=== PATIENT | female | born 1940 | race Caucasian/White ===

== ENCOUNTER 2019-04-25 22:12 | Inpatient (IN) | payer MEDICARE ==
[~2019-04-25] VITALS: Ht 176.5 cm; Wt 85.5 kg
[2019-04-25] MEDS ORDERED: PANT40TA3 PO (23:07)
[2019-04-25] MEDS ORDERED: OXYC-302 PO (23:07)
[2019-04-25] MEDS ORDERED: CALC-112 PO (23:08)
[2019-04-25] MEDS ORDERED: LEVO50TA PO (23:09)
[2019-04-25] MEDS ORDERED: LOSA25TA12 PO (23:10)
[2019-04-25] MEDS ORDERED: SIMV40TA20 PO (23:11)
[2019-04-25] MEDS ORDERED: metoprolol er PO (23:11)
[2019-04-25 23:14] VITALS: BP 128/72
[2019-04-26] MEDS ORDERED: PROMETHAZINE 25 MG/ML, 1ML IM PRN (04:00)
[2019-04-26] MEDS ORDERED: ONDANSETRON ODT 4 MG PO PRN (04:00)
[2019-04-26] MEDS ORDERED: hydrALAzine 20 MG/ML, 1ML IVPush PRN (04:00)
[2019-04-26] MEDS ORDERED: BISACODYL 10 MG SUPP PR PRN (04:00)
[2019-04-26] MEDS ORDERED: ONDANSETRON 2MG/ML, 2ML IVPush PRN (04:00)
[2019-04-26] MEDS ORDERED: POLYETHYLENE GLYCOL 17 GM PACKET PO PRN (04:00)
[2019-04-26] MEDS ORDERED: ACETAMINOPHEN 325 MG TABLET PO PRN (04:00)
[2019-04-26 04:19] VITALS: BP 135/81
[2019-04-26 04:22] LABS: BASOPHILS # (AUTO) 0.12 x10^3/uL (0-0.1); BASOPHILS % (AUTO) 2 % (0-1); EOSINOPHILS # (AUTO) 0.07 x10^3/uL (0-0.4); EOSINOPHILS % (AUTO) 1 % (1-7); LYMPHOCYTES # (AUTO) 0.96 x10^3/uL (1-3.4); LYMPHOCYTES % (AUTO) 13 % (22-44); MD NO; MEAN CORPUSCULAR HEMOGLOBIN 29.7 pg (27.0-34.8); MEAN CORPUSCULAR HGB CONC 33.8 g/dL (32.4-35.8); MEAN PLATELET VOLUME 7.2 fL (7.4-10.4); MONOCYTES # (AUTO) 0.68 x10^3/uL (0.2-0.8); MONOCYTES % (AUTO) 9 % (2-9); NEUTROPHILS % (AUTO) 75 % (42-75); PLATELET COUNT 380 x10^3/uL (130-400); RED BLOOD COUNT 3.87 x10^6/uL (3.82-5.3); RED CELL DISTRIBUTION WIDTH 13.6 % (9.6-15.2)
[2019-04-26 04:33] LABS: ALANINE AMINOTRANSFERASE 11 U/L (12-78); ALBUMIN 2.3 g/dL (3.4-5.0); ANION GAP 6 mmol/L (5-15); CALCIUM 11.1 mg/dL (8.5-10.1); CHLORIDE 110 mmol/L (98-107)
[2019-04-26 04:42] LABS: ALKALINE PHOSPHATASE 92 U/L (45-117); BILIRUBIN,TOTAL 0.3 mg/dL (0.2-1.0); CHOL/HDL RATIO 4.1; CHOLESTEROL, TOTAL 126 mg/dL (140-239); CREATININE 1.25 mg/dL (0.55-1.02); HDL CHOL % 25 % (28-40); HDL CHOLESTEROL (DIRECT) 31 mg/dL (40-60); LDL CHOLESTEROL,CALCULATED 51 mg/dL (54-169); LDL/HDL RATIO 1.6 (0.5-3.0); TOTAL PROTEIN 5.2 g/dL (6.4-8.2); TRIGLYCERIDES 222 mg/dL (50-200); VLDL CHOLESTEROL 44 mg/dL (0-25)
[2019-04-26] MEDS: SODIUM CHLORIDE 0.9% 1,000 ML IV SCH ×2 (04:51→12:37)
[2019-04-26] MEDS: LEVOTHYROXINE 50 MCG TABLET PO SCH (06:00)
[2019-04-26 07:12] VITALS: BP_SYST 94; BP_SYST 95; BP_DIAS 59; BP_DIAS 60
[2019-04-26] MEDS: LOSARTAN 25MG TABLET PO SCH (07:31)
[2019-04-26] MEDS: PANTOPROZOLE 40MG TABLET PO SCH ×2 (09:00→09:53)
[2019-04-26] MEDS ORDERED: CALCIUM/VITAMIN D3 250-125 TABLET PO SCH (09:00)
[2019-04-26] MEDS: SENNA/DOCUSATE TABLET PO SCH ×2 (09:00→09:53)
[2019-04-26 09:46] VITALS: BP 108/63
[2019-04-26] MEDS: METOPROLOL SUCCINATE 50 MG TAB.ER.24H PO SCH (09:53)
[2019-04-26 10:41] LABS: CULTURE INDICATED? YES; MICROSCOPIC INDICATED
[2019-04-26] MEDS ORDERED: LIDOCAINE 1%, 10ML ONE (10:52)
[2019-04-26] MEDS ORDERED: MIDAZOLAM 1 MG/ML, 5ML ONE (10:55)
[2019-04-26] MEDS ORDERED: FLUMAZENIL 0.1 MG/1 ML, 5ML ONE (10:55)
[2019-04-26] MEDS ORDERED: FENTANYL PF 100 MCG/2ML ONE (10:55)
[2019-04-26] MEDS ORDERED: NALOXONE 1 MG/ML, 2ML ONE (10:55)
[2019-04-26] MEDS: OXYcodone IR 5MG TABLET PO PRN (12:37)
[2019-04-26 13:56] VITALS: BP_SYST 84; BP_SYST 86; BP_SYST 91; BP_DIAS 53; BP_DIAS 57; BP_DIAS 58
[2019-04-26 19:21] VITALS: BP 116/60
[2019-04-26] MEDS: SIMVASTATIN 40 MG TABLET PO SCH (19:28)
[2019-04-27 03:22] VITALS: BP 98/64
[2019-04-27] MEDS: LEVOTHYROXINE 50 MCG TABLET PO SCH (05:18)
[2019-04-27 05:53] LABS: BASOPHILS # (AUTO) 0.05 x10^3/uL (0-0.1); BASOPHILS % (AUTO) 1 % (0-1); EOSINOPHILS # (AUTO) 0.16 x10^3/uL (0-0.4); EOSINOPHILS % (AUTO) 2 % (1-7); LYMPHOCYTES # (AUTO) 1.16 x10^3/uL (1-3.4); LYMPHOCYTES % (AUTO) 15 % (22-44); MD NO; MEAN CORPUSCULAR HEMOGLOBIN 29.8 pg (27.0-34.8); MEAN CORPUSCULAR HGB CONC 33.4 g/dL (32.4-35.8); MEAN CORPUSCULAR VOLUME 89.4 fL (80-100); MEAN PLATELET VOLUME 7.4 fL (7.4-10.4); MONOCYTES # (AUTO) 0.74 x10^3/uL (0.2-0.8); MONOCYTES % (AUTO) 9 % (2-9); NEUTROPHILS # (AUTO) 5.75 x10^3/uL (1.8-6.8); NEUTROPHILS % (AUTO) 73 % (42-75); PLATELET COUNT 380 x10^3/uL (130-400); RED BLOOD COUNT 4.14 x10^6/uL (3.82-5.3); RED CELL DISTRIBUTION WIDTH 13.7 % (9.6-15.2)
[2019-04-27 06:10] LABS: ALBUMIN 2.3 g/dL (3.4-5.0); ANION GAP 7 mmol/L (5-15); CALCIUM 11.2 mg/dL (8.5-10.1); CHLORIDE 111 mmol/L (98-107)
[2019-04-27 06:19] LABS: ALANINE AMINOTRANSFERASE 7 U/L (12-78); ALKALINE PHOSPHATASE 111 U/L (45-117); BILIRUBIN,TOTAL 0.3 mg/dL (0.2-1.0); CREATININE 1.32 mg/dL (0.55-1.02); TOTAL PROTEIN 5.6 g/dL (6.4-8.2)
[2019-04-27] MEDS ORDERED: PAMIDRONATE 60 MG in SODIUM CHLORIDE 0.9% 500 ML IV ONE (07:30)
[2019-04-27] MEDS ORDERED: PAMIDRONATE 3 MG/ML, 10ML IV ONE (07:30)
[2019-04-27 08:19] VITALS: BP 106/68
[2019-04-27] MEDS ORDERED: CEFTRIAXONE PMX 1GM/50ML 50 ML IV SCH (10:00)
[2019-04-27] MEDS: LOSARTAN 25MG TABLET PO SCH (10:39)
[2019-04-27] MEDS: PANTOPROZOLE 40MG TABLET PO SCH (10:40)
[2019-04-27] MEDS: SENNA/DOCUSATE TABLET PO SCH (10:40)
[2019-04-27] MEDS: METOPROLOL SUCCINATE 50 MG TAB.ER.24H PO SCH (10:40)
[2019-04-27] MEDS: SODIUM CHLORIDE 0.9% 1,000 ML IV SCH ×2 (10:41→21:16)
[2019-04-27] MEDS: OXYcodone IR 5MG TABLET PO PRN (11:22)
[2019-04-27 13:39] VITALS: BP 113/68
[2019-04-27 19:04] VITALS: BP 115/62
[2019-04-27] MEDS: SIMVASTATIN 40 MG TABLET PO SCH (21:15)
[2019-04-28 02:43] VITALS: BP 141/76
[2019-04-28] MEDS: SODIUM CHLORIDE 0.9% 1,000 ML IV SCH ×3 (05:54→22:47)
[2019-04-28] MEDS: LEVOTHYROXINE 50 MCG TABLET PO SCH (05:54)
[2019-04-28 07:26] VITALS: BP 144/81
[2019-04-28] MEDS: SENNA/DOCUSATE TABLET PO SCH (07:39)
[2019-04-28] MEDS: METOPROLOL SUCCINATE 50 MG TAB.ER.24H PO SCH (09:13)
[2019-04-28] MEDS: PANTOPROZOLE 40MG TABLET PO SCH (09:15)
[2019-04-28] MEDS: LOSARTAN 25MG TABLET PO SCH (09:15)
[2019-04-28] MEDS ORDERED: ALBUTEROL SULFATE 2.5 MG/3 ML NPPB PRN (10:00)
[2019-04-28] MEDS ORDERED: FLUTICASONE FUROATE 200MCG/INH INH SCH (10:00)
[2019-04-28] MEDS: AMPICILLIN 2 GM in SODIUM CHLORIDE 0.9% 100 ML IV SCH ×3 (11:33→20:18)
[2019-04-28 13:32] VITALS: BP 145/75
[2019-04-28 18:58] VITALS: BP 132/81
[2019-04-28] MEDS: SIMVASTATIN 40 MG TABLET PO SCH (20:18)
[2019-04-29] MEDS: AMPICILLIN 2 GM in SODIUM CHLORIDE 0.9% 100 ML IV SCH ×4 (00:20→12:00)
[2019-04-29 01:11] VITALS: BP 116/59
[2019-04-29 04:46] LABS: BASOPHILS # (AUTO) 0.03 x10^3/uL (0-0.1); BASOPHILS % (AUTO) 0 % (0-1); EOSINOPHILS # (AUTO) 0.12 x10^3/uL (0-0.4); EOSINOPHILS % (AUTO) 2 % (1-7); LYMPHOCYTES # (AUTO) 0.91 x10^3/uL (1-3.4); LYMPHOCYTES % (AUTO) 13 % (22-44); MD NO; MEAN CORPUSCULAR HEMOGLOBIN 29.1 pg (27.0-34.8); MEAN CORPUSCULAR VOLUME 88.2 fL (80-100); MEAN PLATELET VOLUME 6.5 fL (7.4-10.4); MONOCYTES # (AUTO) 0.56 x10^3/uL (0.2-0.8); MONOCYTES % (AUTO) 8 % (2-9); NEUTROPHILS # (AUTO) 5.29 x10^3/uL (1.8-6.8); NEUTROPHILS % (AUTO) 77 % (42-75); PLATELET COUNT 364 x10^3/uL (130-400); RED BLOOD COUNT 4.06 x10^6/uL (3.82-5.3); RED CELL DISTRIBUTION WIDTH 13.4 % (9.6-15.2)
[2019-04-29 04:55] LABS: ALANINE AMINOTRANSFERASE 9 U/L (12-78); ALBUMIN 2.1 g/dL (3.4-5.0); ANION GAP 6 mmol/L (5-15); CALCIUM 9.1 mg/dL (8.5-10.1); CHLORIDE 116 mmol/L (98-107); CREATININE 0.89 mg/dL (0.55-1.02)
[2019-04-29 04:57] LABS: ALKALINE PHOSPHATASE 100 U/L (45-117); BILIRUBIN,TOTAL 0.5 mg/dL (0.2-1.0); TOTAL PROTEIN 5.1 g/dL (6.4-8.2)
[2019-04-29] MEDS: LEVOTHYROXINE 50 MCG TABLET PO SCH (05:54)
[2019-04-29] MEDS ORDERED: POTASSIUM CHLORIDE 20 MEQ PACKET PO ONE ×3 (07:00→12:00)
[2019-04-29 07:59] VITALS: BP 121/62
[2019-04-29] MEDS ORDERED: FLUTICASONE FUROATE 100MCG/INH INH SCH (08:00)
[2019-04-29] MEDS: SODIUM CHLORIDE 0.9% 1,000 ML IV SCH (08:00)
[2019-04-29] MEDS ORDERED: POTASSIUM CHLORIDE 10% 40 MEQ/30 ML UDC PO ONE (08:30)
[2019-04-29] MEDS ORDERED: POTASSIUM CHLORIDE 10% 20 MEQ/15 ML UDC PO ONE (08:30)
[2019-04-29] MEDS: METOPROLOL SUCCINATE 50 MG TAB.ER.24H PO SCH (09:02)
[2019-04-29] MEDS: LOSARTAN 25MG TABLET PO SCH (09:02)
[2019-04-29] MEDS: PANTOPROZOLE 40MG TABLET PO SCH (09:02)
[2019-04-29] MEDS: SENNA/DOCUSATE TABLET PO SCH (09:02)
[2019-04-29] MEDS ORDERED: FLUT100B INH (13:28)
== END 2019-04-29 13:30 | disposition home or self-care (01) | DRG 180 ==
LOC: 4NW 22:55 → DCLOUNGE 04-29 13:18
PROVIDERS: ADMIT Internal Medicine; ATTEND Hospitalist
PROC: 0BBF3ZX Excision of Right Lower Lung Lobe, Percutaneous Approach, Diagnostic (ICD-10-PCS; principal; 2019-04-26)
DX: C78.00 Secondary malignant neoplasm of unspecified lung (principal); J96.01 Acute respiratory failure with hypoxia; N12 Tubulo-interstitial nephritis, not specified as acute or chronic; E03.9 Hypothyroidism, unspecified; E78.5 Hyperlipidemia, unspecified; E83.52 Hypercalcemia; E86.0 Dehydration; I10 Essential (primary) hypertension; K21.9 Gastro-esophageal reflux disease without esophagitis; Z88.5 Allergy status to narcotic agent; Z88.8 Allergy status to other drugs, medicaments and biological substances; N28.89 Other specified disorders of kidney and ureter; M47.816 Spondylosis without myelopathy or radiculopathy, lumbar region; Z79.899 Other long term (current) drug therapy; D25.9 Leiomyoma of uterus, unspecified; C80.1 Malignant (primary) neoplasm, unspecified
CPT/HCPCS: 32405; 36415; 71045; 76856; 77012; 80053; 80061; 81001; 83036; 83735; 84439; 84443; 85025; 86301; 87077; 87086; 87186; 88305; 88341; 88342; 99156; 99157; G0378; J0290; J0696; J2250; J3010; J2310; J2430; J7030; J7040

== ENCOUNTER 2019-05-15 10:47 | Inpatient (IN) | payer MEDICARE ==
[~2019-05-15] VITALS: Ht 175.3 cm; Wt 80.4 kg
[~2019-05-15 10:47] MED LIST: CALC-112 PO; FLUT100B INH; LEVO50TA PO; LOSA25TA12 PO; OXYC-302 PO; PANT40TA3 PO; SIMV40TA20 PO; metoprolol er PO
[2019-05-15] MEDS ORDERED: SODIUM CHLORIDE FLUSH 10ML SYR IVF ONE (12:00)
[2019-05-15] MEDS ORDERED: SODIUM CHLORIDE 0.9% 1,000ML IVBOLUS ONE (12:00)
--- NOTE | 2019-05-15 12:20 | NUR ---
PT CAME IN CO OF SEVER PAIN IN HER CHEST AND ABD. PT HAS HX OF CANCER IN HER KIDNEY THAT HAS SPREAD TO ABD AND BOTH LUNGS. PT HAS A COUGH THAT IS REALLY PAINFUL. SEE [facility] FOR INTERVENTIONS FOR COUGH. BLANKET PROVIDED. 95% ON 3LITERS
[2019-05-15 12:36] LABS: BASOPHILS # (AUTO) 0.08 x10^3/uL (0-0.1); BASOPHILS % (AUTO) 1 % (0-1); EOSINOPHILS # (AUTO) 0.02 x10^3/uL (0-0.4); EOSINOPHILS % (AUTO) 0 % (1-7); LYMPHOCYTES # (AUTO) 1.03 x10^3/uL (1-3.4); LYMPHOCYTES % (AUTO) 12 % (22-44); MD NO; MEAN CORPUSCULAR HEMOGLOBIN 28.8 pg (27.0-34.8); MEAN CORPUSCULAR HGB CONC 32.9 g/dL (32.4-35.8); MEAN CORPUSCULAR VOLUME 87.7 fL (80-100); MEAN PLATELET VOLUME 6.4 fL (7.4-10.4); MONOCYTES # (AUTO) 0.67 x10^3/uL (0.2-0.8); MONOCYTES % (AUTO) 8 % (2-9); NEUTROPHILS # (AUTO) 7.09 x10^3/uL (1.8-6.8); NEUTROPHILS % (AUTO) 80 % (42-75); PLATELET COUNT 523 x10^3/uL (130-400); RED BLOOD COUNT 4.62 x10^6/uL (3.82-5.3); RED CELL DISTRIBUTION WIDTH 14.9 % (9.6-15.2)
[2019-05-15 12:48] LABS: ALBUMIN 2.5 g/dL (3.4-5.0); ANION GAP 8 mmol/L (5-15); CALCIUM 10.7 mg/dL (8.5-10.1); CHLORIDE 105 mmol/L (98-107)
[2019-05-15 12:56] LABS: ALANINE AMINOTRANSFERASE 11 U/L (12-78); ALKALINE PHOSPHATASE 114 U/L (45-117); BILIRUBIN,TOTAL 0.9 mg/dL (0.2-1.0); CREATININE 0.95 mg/dL (0.55-1.02); TOTAL PROTEIN 6.1 g/dL (6.4-8.2); TROPONIN I 0.034 ng/mL (0.000-0.045)
[2019-05-15] MEDS ORDERED: PROMETHAZINE/COD. 10MG/6.25MG/5 ML ORAL SOL PO ONE (13:00)
--- NOTE | 2019-05-15 13:37 | NUR ---
PT RESTING IN [facility]. WATCHIGN TV. COMMODE IS BEDSIDE. NO NEEDS AT THIS TIME
[2019-05-15 13:38] LABS: MICROSCOPIC INDICATED
[2019-05-15 13:43] LABS: CULTURE INDICATED? YES
[2019-05-15 13:47] LABS: RAPID INFLUENZA A Negative (Negative); RAPID INFLUENZA B Negative (Negative)
--- NOTE | 2019-05-15 14:07 | NUR ---
PT IN [place]
[2019-05-15] MEDS ORDERED: OMNIPAQUE 350 MG/ML, 100ML BOTTLE ONE (14:27)
[2019-05-15] MEDS ORDERED: CEFTRIAXONE PMX 1GM/50ML 50 ML IVPB ONE (15:00)
[2019-05-15] MEDS ORDERED: CEFTRIAXONE PMX 1GM/50ML 50 ML ONE (15:28)
[2019-05-15] MEDS ORDERED: PROMETHAZINE 25 MG/ML, 1ML IM PRN (16:00)
[2019-05-15] MEDS ORDERED: METOCLOPRAMIDE 5 MG/ML, 2ML IVPush PRN (16:00)
[2019-05-15] MEDS ORDERED: TRAZODONE 50MG TABLET PO PRN (16:00)
[2019-05-15] MEDS ORDERED: IBUPROFEN 600 MG TABLET PO PRN (16:00)
[2019-05-15] MEDS ORDERED: ONDANSETRON ODT 4 MG PO PRN (16:00)
[2019-05-15] MEDS ORDERED: CYCLOBENZAPRINE 10 MG TABLET PO PRN (16:00)
[2019-05-15] MEDS ORDERED: LABETALOL 5MG/ML, 20ML IVPush PRN (16:00)
[2019-05-15] MEDS ORDERED: hydrALAzine 20 MG/ML, 1ML IVPush PRN (16:00)
[2019-05-15] MEDS ORDERED: ACETAMINOPHEN 325 MG TABLET PO PRN (16:00)
[2019-05-15] MEDS ORDERED: KETOROLAC 30 MG/1 ML IV PRN (16:00)
[2019-05-15] MEDS ORDERED: HYDROmorphone 2 MG/ML, 1ML IVPush PRN (16:00)
[2019-05-15] MEDS ORDERED: LIDODERM 5% PATCH TD PRN (16:00)
[2019-05-15] MEDS ORDERED: AZITHROMYCIN 500 MG in SODIUM CHLORIDE 0.9% 250 ML IV SCH (16:30)
[2019-05-15] MEDS: GUAIFENESIN/COD200MG-20MG/10ML LIQUID PO PRN ×2 (17:26→18:00)
[2019-05-15 17:30] VITALS: BP 118/79
[2019-05-15] MEDS: DOXYCYCLINE 100 MG in DEXTROSE 5% 250 ML IV SCH (18:46)
[2019-05-15 19:38] VITALS: BP 110/73
[2019-05-15] MEDS: D5%-0.45% NACL 1,000 ML IV SCH (20:59)
[2019-05-15] MEDS: SIMVASTATIN 40 MG TABLET PO SCH (20:59)
[2019-05-16 01:07] VITALS: BP 108/69
[2019-05-16] MEDS: GUAIFENESIN/COD200MG-20MG/10ML LIQUID PO PRN ×2 (01:13→07:08)
[2019-05-16] MEDS: CEFTRIAXONE PMX 1GM/50ML 50 ML IV SCH ×2 (03:35→15:22)
[2019-05-16 04:50] LABS: BASOPHILS # (AUTO) 0.02 x10^3/uL (0-0.1); BASOPHILS % (AUTO) 0 % (0-1); EOSINOPHILS # (AUTO) 0.16 x10^3/uL (0-0.4); EOSINOPHILS % (AUTO) 3 % (1-7); LYMPHOCYTES % (AUTO) 13 % (22-44); MD NO; MEAN CORPUSCULAR HEMOGLOBIN 28.8 pg (27.0-34.8); MEAN CORPUSCULAR VOLUME 87.2 fL (80-100); MEAN PLATELET VOLUME 6.7 fL (7.4-10.4); MONOCYTES # (AUTO) 0.47 x10^3/uL (0.2-0.8); MONOCYTES % (AUTO) 8 % (2-9); NEUTROPHILS # (AUTO) 4.63 x10^3/uL (1.8-6.8); NEUTROPHILS % (AUTO) 76 % (42-75); PLATELET COUNT 418 x10^3/uL (130-400); RED BLOOD COUNT 3.98 x10^6/uL (3.82-5.3); RED CELL DISTRIBUTION WIDTH 14.6 % (9.6-15.2)
[2019-05-16 04:55] LABS: ANION GAP 7 mmol/L (5-15); CALCIUM 10.2 mg/dL (8.5-10.1); CHLORIDE 107 mmol/L (98-107)
[2019-05-16] MEDS: DOXYCYCLINE 100 MG in DEXTROSE 5% 250 ML IV SCH ×2 (06:11→18:33)
[2019-05-16] MEDS: LEVOTHYROXINE 50 MCG TABLET PO SCH (06:12)
[2019-05-16] MEDS: D5%-0.45% NACL 1,000 ML IV SCH (06:12)
[2019-05-16 08:00] VITALS: BP 131/81
[2019-05-16] MEDS: ENOXAPARIN 40 MG/0.4 ML SQ SCH (09:00)
[2019-05-16] MEDS: PANTOPROZOLE 40MG TABLET PO SCH (09:00)
[2019-05-16 15:22] VITALS: BP 138/84
[2019-05-16 18:29] VITALS: BP 133/84
[2019-05-16] MEDS: SIMVASTATIN 40 MG TABLET PO SCH (21:50)
[2019-05-16] MEDS: OXYcodone IR 5MG TABLET PO PRN (21:59)
[2019-05-16] MEDS: DOCUSATE 100 MG CAPSULE PO PRN (22:01)
[2019-05-17 02:05] VITALS: BP 123/77
[2019-05-17] MEDS: CEFTRIAXONE PMX 1GM/50ML 50 ML IV SCH ×2 (03:43→14:31)
[2019-05-17] MEDS: GUAIFENESIN/COD200MG-20MG/10ML LIQUID PO PRN ×4 (03:43→22:56)
[2019-05-17] MEDS: OXYcodone IR 5MG TABLET PO PRN ×3 (03:51→19:50)
[2019-05-17] MEDS: DOXYCYCLINE 100 MG in DEXTROSE 5% 250 ML IV SCH ×2 (05:25→16:32)
[2019-05-17] MEDS: LEVOTHYROXINE 50 MCG TABLET PO SCH (05:47)
[2019-05-17 07:59] VITALS: BP 115/76
[2019-05-17] MEDS: PANTOPROZOLE 40MG TABLET PO SCH (08:18)
[2019-05-17] MEDS: ENOXAPARIN 40 MG/0.4 ML SQ SCH (08:21)
[2019-05-17] MEDS: METOPROLOL SUCCINATE 50 MG TAB.ER.24H PO SCH (09:18)
[2019-05-17 13:05] VITALS: BP 122/79
[2019-05-17 18:58] VITALS: BP 129/76
[2019-05-17] MEDS: SIMVASTATIN 40 MG TABLET PO SCH (19:48)
[2019-05-17] MEDS: DOCUSATE 100 MG CAPSULE PO PRN (19:48)
[2019-05-18 01:59] VITALS: BP 122/78
[2019-05-18] MEDS: CEFTRIAXONE PMX 1GM/50ML 50 ML IV SCH ×2 (02:19→14:31)
[2019-05-18] MEDS: OXYcodone IR 5MG TABLET PO PRN (02:19)
[2019-05-18] MEDS: GUAIFENESIN/COD200MG-20MG/10ML LIQUID PO PRN (05:09)
[2019-05-18] MEDS: DOXYCYCLINE 100 MG in DEXTROSE 5% 250 ML IV SCH ×2 (05:10→16:48)
[2019-05-18] MEDS: LEVOTHYROXINE 50 MCG TABLET PO SCH (05:10)
[2019-05-18] MEDS: METOPROLOL SUCCINATE 50 MG TAB.ER.24H PO SCH (05:10)
[2019-05-18 05:46] LABS: BASOPHILS # (AUTO) 0.04 x10^3/uL (0-0.1); BASOPHILS % (AUTO) 1 % (0-1); EOSINOPHILS # (AUTO) 0.21 x10^3/uL (0-0.4); EOSINOPHILS % (AUTO) 3 % (1-7); LYMPHOCYTES # (AUTO) 0.87 x10^3/uL (1-3.4); LYMPHOCYTES % (AUTO) 13 % (22-44); MD NO; MEAN CORPUSCULAR HEMOGLOBIN 28.3 pg (27.0-34.8); MEAN CORPUSCULAR HGB CONC 32.5 g/dL (32.4-35.8); MEAN CORPUSCULAR VOLUME 86.8 fL (80-100); MEAN PLATELET VOLUME 6.9 fL (7.4-10.4); MONOCYTES # (AUTO) 0.63 x10^3/uL (0.2-0.8); MONOCYTES % (AUTO) 10 % (2-9); NEUTROPHILS # (AUTO) 4.82 x10^3/uL (1.8-6.8); NEUTROPHILS % (AUTO) 73 % (42-75); PLATELET COUNT 366 x10^3/uL (130-400); RED BLOOD COUNT 4.04 x10^6/uL (3.82-5.3); RED CELL DISTRIBUTION WIDTH 14.6 % (9.6-15.2)
[2019-05-18 06:00] LABS: ALBUMIN 1.9 g/dL (3.4-5.0); ANION GAP 3 mmol/L (5-15); CALCIUM 10.5 mg/dL (8.5-10.1); CHLORIDE 108 mmol/L (98-107)
[2019-05-18 06:04] LABS: ALANINE AMINOTRANSFERASE 12 U/L (12-78); ALKALINE PHOSPHATASE 99 U/L (45-117); BILIRUBIN,TOTAL 0.4 mg/dL (0.2-1.0); CREATININE 0.82 mg/dL (0.55-1.02); TOTAL PROTEIN 5.1 g/dL (6.4-8.2)
[2019-05-18 08:56] VITALS: BP 107/70
[2019-05-18] MEDS: PANTOPROZOLE 40MG TABLET PO SCH (09:05)
[2019-05-18] MEDS: ENOXAPARIN 40 MG/0.4 ML SQ SCH (09:05)
[2019-05-18] MEDS: BENZONATATE 100 MG CAPSULE PO PRN ×2 (11:07→21:29)
[2019-05-18] MEDS ORDERED: ALBUTEROL SULFATE 2.5 MG/3 ML NPPB PRN (11:30)
[2019-05-18 13:00] VITALS: BP 110/74
[2019-05-18 19:20] VITALS: BP 115/74
[2019-05-18] MEDS: SIMVASTATIN 40 MG TABLET PO SCH (21:29)
[2019-05-19] MEDS: OXYcodone IR 5MG TABLET PO PRN ×4 (01:57→23:54)
[2019-05-19 01:58] VITALS: BP 135/85
[2019-05-19] MEDS: CEFTRIAXONE PMX 1GM/50ML 50 ML IV SCH ×2 (03:51→15:13)
[2019-05-19] MEDS: DOXYCYCLINE 100 MG in DEXTROSE 5% 250 ML IV SCH (05:54)
[2019-05-19] MEDS: LEVOTHYROXINE 50 MCG TABLET PO SCH (06:00)
[2019-05-19] MEDS: METOPROLOL SUCCINATE 50 MG TAB.ER.24H PO SCH (06:00)
[2019-05-19 08:03] VITALS: BP 137/87
[2019-05-19] MEDS: PANTOPROZOLE 40MG TABLET PO SCH (08:08)
[2019-05-19] MEDS: ENOXAPARIN 40 MG/0.4 ML SQ SCH (08:08)
[2019-05-19 09:38] LABS: BASOPHILS # (AUTO) 0.08 x10^3/uL (0-0.1); BASOPHILS % (AUTO) 1 % (0-1); EOSINOPHILS # (AUTO) 0.09 x10^3/uL (0-0.4); EOSINOPHILS % (AUTO) 1 % (1-7); LYMPHOCYTES # (AUTO) 0.92 x10^3/uL (1-3.4); LYMPHOCYTES % (AUTO) 11 % (22-44); MD NO; MEAN CORPUSCULAR HEMOGLOBIN 28.1 pg (27.0-34.8); MEAN CORPUSCULAR HGB CONC 32.3 g/dL (32.4-35.8); MEAN PLATELET VOLUME 6.5 fL (7.4-10.4); MONOCYTES # (AUTO) 0.73 x10^3/uL (0.2-0.8); MONOCYTES % (AUTO) 9 % (2-9); NEUTROPHILS # (AUTO) 6.26 x10^3/uL (1.8-6.8); NEUTROPHILS % (AUTO) 78 % (42-75); PLATELET COUNT 361 x10^3/uL (130-400); RED BLOOD COUNT 4.21 x10^6/uL (3.82-5.3); RED CELL DISTRIBUTION WIDTH 14.9 % (9.6-15.2)
[2019-05-19 09:45] LABS: ANION GAP 7 mmol/L (5-15); CALCIUM 11.4 mg/dL (8.5-10.1); CHLORIDE 105 mmol/L (98-107)
[2019-05-19 09:49] LABS: ALANINE AMINOTRANSFERASE 7 U/L (12-78); ALKALINE PHOSPHATASE 107 U/L (45-117); BILIRUBIN,TOTAL 0.3 mg/dL (0.2-1.0); CREATININE 0.77 mg/dL (0.55-1.02); TOTAL PROTEIN 5.3 g/dL (6.4-8.2)
[2019-05-19] MEDS: ESCITALOPRAM 10MG TABLET PO SCH (10:04)
[2019-05-19] MEDS: DRONABINOL 2.5 MG CAPSULE PO SCH ×2 (10:04→20:05)
[2019-05-19] MEDS: BENZONATATE 100 MG CAPSULE PO PRN ×2 (11:57→20:05)
[2019-05-19 12:48] VITALS: BP 102/74
[2019-05-19] MEDS: SIMVASTATIN 40 MG TABLET PO SCH (20:05)
[2019-05-19] MEDS: DOXYCYCLINE 100MG TABLET PO SCH (20:05)
[2019-05-19 21:32] VITALS: BP 105/58
[2019-05-19] MEDS: ONDANSETRON 2MG/ML, 2ML IVPush PRN (23:54)
[2019-05-20 00:01] VITALS: BP 134/84
[2019-05-20] MEDS: CEFTRIAXONE PMX 1GM/50ML 50 ML IV SCH ×2 (03:09→14:45)
[2019-05-20] MEDS: METOPROLOL SUCCINATE 50 MG TAB.ER.24H PO SCH (05:47)
[2019-05-20] MEDS: LEVOTHYROXINE 50 MCG TABLET PO SCH (05:47)
[2019-05-20 06:19] LABS: ALBUMIN 1.9 g/dL (3.4-5.0); ANION GAP 6 mmol/L (5-15); CALCIUM 11.2 mg/dL (8.5-10.1); CHLORIDE 104 mmol/L (98-107)
[2019-05-20 06:22] LABS: BASOPHILS # (AUTO) 0.06 x10^3/uL (0-0.1); BASOPHILS % (AUTO) 1 % (0-1); EOSINOPHILS # (AUTO) 0.12 x10^3/uL (0-0.4); EOSINOPHILS % (AUTO) 2 % (1-7); LYMPHOCYTES # (AUTO) 0.99 x10^3/uL (1-3.4); LYMPHOCYTES % (AUTO) 13 % (22-44); MD NO; MEAN CORPUSCULAR HEMOGLOBIN 28.4 pg (27.0-34.8); MEAN CORPUSCULAR HGB CONC 32.9 g/dL (32.4-35.8); MEAN CORPUSCULAR VOLUME 86.3 fL (80-100); MEAN PLATELET VOLUME 7.3 fL (7.4-10.4); MONOCYTES # (AUTO) 0.76 x10^3/uL (0.2-0.8); MONOCYTES % (AUTO) 10 % (2-9); NEUTROPHILS # (AUTO) 5.47 x10^3/uL (1.8-6.8); NEUTROPHILS % (AUTO) 74 % (42-75); PLATELET COUNT 315 x10^3/uL (130-400); RED BLOOD COUNT 3.73 x10^6/uL (3.82-5.3); RED CELL DISTRIBUTION WIDTH 14.6 % (9.6-15.2)
[2019-05-20 06:24] LABS: ALANINE AMINOTRANSFERASE 8 U/L (12-78); ALKALINE PHOSPHATASE 104 U/L (45-117); BILIRUBIN,TOTAL 0.4 mg/dL (0.2-1.0)
[2019-05-20 08:00] VITALS: BP 125/82
[2019-05-20] MEDS: DOXYCYCLINE 100MG TABLET PO SCH ×2 (08:41→20:32)
[2019-05-20] MEDS: ESCITALOPRAM 10MG TABLET PO SCH (08:41)
[2019-05-20] MEDS: ENOXAPARIN 40 MG/0.4 ML SQ SCH (08:41)
[2019-05-20] MEDS: DRONABINOL 2.5 MG CAPSULE PO SCH ×2 (08:41→20:32)
[2019-05-20] MEDS: PANTOPROZOLE 40MG TABLET PO SCH (08:41)
[2019-05-20 14:56] VITALS: BP 130/75
[2019-05-20] MEDS ORDERED: ZOLEDRONIC ACID 4 MG in SODIUM CHLORIDE 0.9% 100 ML IV ONE (15:00)
[2019-05-20] MEDS ORDERED: ZOLEDRONIC ACID 4MG/100ML 100 ML IV ONE (15:00)
[2019-05-20 19:53] VITALS: BP 116/73
[2019-05-20] MEDS: SIMVASTATIN 40 MG TABLET PO SCH (20:32)
[2019-05-20] MEDS: BENZONATATE 100 MG CAPSULE PO PRN (20:40)
[2019-05-20] MEDS: GUAIFENESIN/COD200MG-20MG/10ML LIQUID PO PRN (20:40)
[2019-05-21] MEDS: GUAIFENESIN/COD200MG-20MG/10ML LIQUID PO PRN ×2 (03:14→20:56)
[2019-05-21] MEDS: CEFTRIAXONE PMX 1GM/50ML 50 ML IV SCH ×2 (03:14→18:15)
[2019-05-21] MEDS: BENZONATATE 100 MG CAPSULE PO PRN ×2 (03:14→20:56)
[2019-05-21 03:30] VITALS: BP 116/66
[2019-05-21] MEDS: OXYcodone IR 5MG TABLET PO PRN (04:53)
[2019-05-21] MEDS: LEVOTHYROXINE 50 MCG TABLET PO SCH (06:04)
[2019-05-21] MEDS: METOPROLOL SUCCINATE 50 MG TAB.ER.24H PO SCH (06:04)
[2019-05-21 06:21] LABS: BASOPHILS # (AUTO) 0.06 x10^3/uL (0-0.1); BASOPHILS % (AUTO) 1 % (0-1); EOSINOPHILS # (AUTO) 0.04 x10^3/uL (0-0.4); EOSINOPHILS % (AUTO) 1 % (1-7); LYMPHOCYTES # (AUTO) 0.54 x10^3/uL (1-3.4); LYMPHOCYTES % (AUTO) 6 % (22-44); MD NO; MEAN CORPUSCULAR HEMOGLOBIN 28.4 pg (27.0-34.8); MEAN CORPUSCULAR HGB CONC 33.2 g/dL (32.4-35.8); MEAN CORPUSCULAR VOLUME 85.8 fL (80-100); MEAN PLATELET VOLUME 7.4 fL (7.4-10.4); MONOCYTES # (AUTO) 0.74 x10^3/uL (0.2-0.8); MONOCYTES % (AUTO) 9 % (2-9); NEUTROPHILS # (AUTO) 6.96 x10^3/uL (1.8-6.8); NEUTROPHILS % (AUTO) 84 % (42-75); PLATELET COUNT 323 x10^3/uL (130-400); RED BLOOD COUNT 3.88 x10^6/uL (3.82-5.3); RED CELL DISTRIBUTION WIDTH 14.4 % (9.6-15.2)
[2019-05-21 06:28] LABS: ALBUMIN 1.9 g/dL (3.4-5.0); ANION GAP 5 mmol/L (5-15); CALCIUM 11.6 mg/dL (8.5-10.1); CHLORIDE 106 mmol/L (98-107)
[2019-05-21 06:33] LABS: ALANINE AMINOTRANSFERASE 10 U/L (12-78); ALKALINE PHOSPHATASE 113 U/L (45-117); BILIRUBIN,TOTAL 0.2 mg/dL (0.2-1.0); CREATININE 0.83 mg/dL (0.55-1.02); TOTAL PROTEIN 5.1 g/dL (6.4-8.2)
[2019-05-21 07:36] VITALS: BP 122/69
[2019-05-21] MEDS: DOXYCYCLINE 100MG TABLET PO SCH ×2 (10:24→20:41)
[2019-05-21] MEDS: ESCITALOPRAM 10MG TABLET PO SCH (10:24)
[2019-05-21] MEDS: DRONABINOL 2.5 MG CAPSULE PO SCH ×2 (10:24→20:41)
[2019-05-21] MEDS: NEUTRA PHOS K 250 MG TABLET PO SCH ×2 (10:24→20:41)
[2019-05-21] MEDS: PANTOPROZOLE 40MG TABLET PO SCH (10:24)
[2019-05-21] MEDS: SODIUM CHLORIDE 0.9% 1,000 ML IV SCH ×3 (10:29→21:52)
[2019-05-21] MEDS: ENOXAPARIN 40 MG/0.4 ML SQ SCH (10:29)
[2019-05-21] MEDS: FUROSEMIDE 20 MG/2 ML IV SCH (12:56)
[2019-05-21 13:08] VITALS: BP 127/72
[2019-05-21] MEDS ORDERED: METOCLOPRAMIDE 5 MG/ML, 2ML IVPush PRN (16:00)
[2019-05-21 19:46] VITALS: BP 114/70
[2019-05-21] MEDS: SIMVASTATIN 40 MG TABLET PO SCH (20:40)
[2019-05-22] MEDS: FUROSEMIDE 20 MG/2 ML IV SCH (00:47)
[2019-05-22 00:51] VITALS: BP 123/75
[2019-05-22] MEDS: GUAIFENESIN/COD200MG-20MG/10ML LIQUID PO PRN (03:55)
[2019-05-22 04:18] LABS: BASOPHILS # (AUTO) 0.01 x10^3/uL (0-0.1); BASOPHILS % (AUTO) 0 % (0-1); EOSINOPHILS # (AUTO) 0.09 x10^3/uL (0-0.4); EOSINOPHILS % (AUTO) 1 % (1-7); LYMPHOCYTES # (AUTO) 0.91 x10^3/uL (1-3.4); LYMPHOCYTES % (AUTO) 12 % (22-44); MD NO; MEAN CORPUSCULAR HEMOGLOBIN 28.3 pg (27.0-34.8); MEAN CORPUSCULAR HGB CONC 33.3 g/dL (32.4-35.8); MEAN CORPUSCULAR VOLUME 85.1 fL (80-100); MEAN PLATELET VOLUME 7.1 fL (7.4-10.4); MONOCYTES # (AUTO) 0.78 x10^3/uL (0.2-0.8); MONOCYTES % (AUTO) 11 % (2-9); NEUTROPHILS % (AUTO) 76 % (42-75); PLATELET COUNT 312 x10^3/uL (130-400); RED BLOOD COUNT 3.83 x10^6/uL (3.82-5.3); RED CELL DISTRIBUTION WIDTH 14.5 % (9.6-15.2)
[2019-05-22 04:30] LABS: ALANINE AMINOTRANSFERASE 11 U/L (12-78); ALBUMIN 1.9 g/dL (3.4-5.0); ANION GAP 5 mmol/L (5-15); CALCIUM 9.9 mg/dL (8.5-10.1); CHLORIDE 107 mmol/L (98-107); CREATININE 0.87 mg/dL (0.55-1.02)
[2019-05-22 04:32] LABS: ALKALINE PHOSPHATASE 108 U/L (45-117); BILIRUBIN,TOTAL 0.2 mg/dL (0.2-1.0)
[2019-05-22] MEDS: METOPROLOL SUCCINATE 50 MG TAB.ER.24H PO SCH (05:57)
[2019-05-22] MEDS: CEFTRIAXONE PMX 1GM/50ML 50 ML IV SCH ×2 (05:57→17:54)
[2019-05-22] MEDS: LEVOTHYROXINE 50 MCG TABLET PO SCH (05:57)
[2019-05-22] MEDS: SODIUM CHLORIDE 0.9% 1,000 ML IV SCH (05:57)
[2019-05-22 07:18] VITALS: BP 108/65
[2019-05-22] MEDS: DOXYCYCLINE 100MG TABLET PO SCH ×2 (09:54→20:10)
[2019-05-22] MEDS: ESCITALOPRAM 10MG TABLET PO SCH (09:54)
[2019-05-22] MEDS: NEUTRA PHOS K 250 MG TABLET PO SCH ×2 (09:54→20:10)
[2019-05-22] MEDS: ENOXAPARIN 40 MG/0.4 ML SQ SCH (09:54)
[2019-05-22] MEDS: DRONABINOL 2.5 MG CAPSULE PO SCH ×2 (09:54→20:10)
[2019-05-22] MEDS: PANTOPROZOLE 40MG TABLET PO SCH (09:54)
[2019-05-22] MEDS: ONDANSETRON 2MG/ML, 2ML IVPush PRN (12:08)
[2019-05-22 12:55] VITALS: BP 110/71
[2019-05-22 19:26] VITALS: BP 102/64
[2019-05-22] MEDS: SIMVASTATIN 40 MG TABLET PO SCH (20:10)
[2019-05-23 01:59] VITALS: BP 109/67
[2019-05-23] MEDS: GUAIFENESIN/COD200MG-20MG/10ML LIQUID PO PRN ×2 (02:50→20:30)
[2019-05-23 03:20] LABS: BASOPHILS # (AUTO) 0.07 x10^3/uL (0-0.1); BASOPHILS % (AUTO) 1 % (0-1); EOSINOPHILS # (AUTO) 0.06 x10^3/uL (0-0.4); EOSINOPHILS % (AUTO) 1 % (1-7); LYMPHOCYTES # (AUTO) 0.93 x10^3/uL (1-3.4); LYMPHOCYTES % (AUTO) 13 % (22-44); MD NO; MEAN CORPUSCULAR HEMOGLOBIN 28.4 pg (27.0-34.8); MEAN CORPUSCULAR HGB CONC 33.3 g/dL (32.4-35.8); MEAN CORPUSCULAR VOLUME 85.1 fL (80-100); MEAN PLATELET VOLUME 7.2 fL (7.4-10.4); MONOCYTES # (AUTO) 0.82 x10^3/uL (0.2-0.8); MONOCYTES % (AUTO) 11 % (2-9); NEUTROPHILS % (AUTO) 75 % (42-75); PLATELET COUNT 309 x10^3/uL (130-400); RED BLOOD COUNT 3.83 x10^6/uL (3.82-5.3); RED CELL DISTRIBUTION WIDTH 14.5 % (9.6-15.2)
[2019-05-23 03:25] LABS: ALANINE AMINOTRANSFERASE 10 U/L (12-78); ALBUMIN 1.8 g/dL (3.4-5.0); ANION GAP 7 mmol/L (5-15); CALCIUM 8.8 mg/dL (8.5-10.1); CHLORIDE 108 mmol/L (98-107); CREATININE 0.81 mg/dL (0.55-1.02)
[2019-05-23 03:27] LABS: ALKALINE PHOSPHATASE 100 U/L (45-117); BILIRUBIN,TOTAL 0.2 mg/dL (0.2-1.0); TOTAL PROTEIN 4.8 g/dL (6.4-8.2)
[2019-05-23] MEDS: LEVOTHYROXINE 50 MCG TABLET PO SCH (05:40)
[2019-05-23] MEDS: CEFTRIAXONE PMX 1GM/50ML 50 ML IV SCH ×2 (05:40→17:20)
[2019-05-23] MEDS: METOPROLOL SUCCINATE 50 MG TAB.ER.24H PO SCH (05:40)
[2019-05-23] MEDS ORDERED: POTASSIUM PHOSPHATE 44 MEQ in SODIUM CHLORIDE 0.9% 500 ML IV ONE (07:30)
[2019-05-23 07:54] VITALS: BP 113/71
[2019-05-23] MEDS: DRONABINOL 2.5 MG CAPSULE PO SCH ×2 (09:18→20:25)
[2019-05-23] MEDS: DOXYCYCLINE 100MG TABLET PO SCH ×2 (09:18→20:25)
[2019-05-23] MEDS: PANTOPROZOLE 40MG TABLET PO SCH (09:18)
[2019-05-23] MEDS: ESCITALOPRAM 10MG TABLET PO SCH (09:18)
[2019-05-23] MEDS: ENOXAPARIN 40 MG/0.4 ML SQ SCH (09:19)
[2019-05-23 13:35] VITALS: BP 122/63
[2019-05-23 19:09] VITALS: BP 112/69
[2019-05-23] MEDS: SIMVASTATIN 40 MG TABLET PO SCH (20:25)
[2019-05-24 03:28] VITALS: BP 116/66
[2019-05-24] MEDS: GUAIFENESIN/COD200MG-20MG/10ML LIQUID PO PRN ×2 (03:30→20:57)
[2019-05-24 03:31] LABS: BASOPHILS # (AUTO) 0.07 x10^3/uL (0-0.1); BASOPHILS % (AUTO) 1 % (0-1); EOSINOPHILS # (AUTO) 0.05 x10^3/uL (0-0.4); EOSINOPHILS % (AUTO) 1 % (1-7); LYMPHOCYTES # (AUTO) 0.92 x10^3/uL (1-3.4); LYMPHOCYTES % (AUTO) 13 % (22-44); MD NO; MEAN CORPUSCULAR HEMOGLOBIN 27.7 pg (27.0-34.8); MEAN CORPUSCULAR HGB CONC 32.2 g/dL (32.4-35.8); MEAN CORPUSCULAR VOLUME 86.2 fL (80-100); MEAN PLATELET VOLUME 6.8 fL (7.4-10.4); MONOCYTES # (AUTO) 0.65 x10^3/uL (0.2-0.8); MONOCYTES % (AUTO) 9 % (2-9); NEUTROPHILS # (AUTO) 5.38 x10^3/uL (1.8-6.8); NEUTROPHILS % (AUTO) 76 % (42-75); PLATELET COUNT 315 x10^3/uL (130-400); RED BLOOD COUNT 3.92 x10^6/uL (3.82-5.3); RED CELL DISTRIBUTION WIDTH 14.8 % (9.6-15.2)
[2019-05-24 03:46] LABS: ALANINE AMINOTRANSFERASE 12 U/L (12-78); ALBUMIN 1.8 g/dL (3.4-5.0); ANION GAP 7 mmol/L (5-15); CALCIUM 8.4 mg/dL (8.5-10.1); CHLORIDE 109 mmol/L (98-107); CREATININE 0.79 mg/dL (0.55-1.02)
[2019-05-24 03:48] LABS: ALKALINE PHOSPHATASE 97 U/L (45-117); BILIRUBIN,TOTAL 0.2 mg/dL (0.2-1.0); TOTAL PROTEIN 4.8 g/dL (6.4-8.2)
[2019-05-24] MEDS: METOPROLOL SUCCINATE 50 MG TAB.ER.24H PO SCH (05:39)
[2019-05-24] MEDS: LEVOTHYROXINE 50 MCG TABLET PO SCH (05:39)
[2019-05-24] MEDS: CEFTRIAXONE PMX 1GM/50ML 50 ML IV SCH ×2 (05:40→18:11)
[2019-05-24 07:31] VITALS: BP 121/78
[2019-05-24] MEDS: DRONABINOL 2.5 MG CAPSULE PO SCH ×3 (08:17→21:03)
[2019-05-24] MEDS: PANTOPROZOLE 40MG TABLET PO SCH (08:17)
[2019-05-24] MEDS: DOXYCYCLINE 100MG TABLET PO SCH ×2 (08:17→20:57)
[2019-05-24 14:03] VITALS: BP 118/77
[2019-05-24] MEDS: OXYcodone IR 5MG TABLET PO PRN (16:26)
[2019-05-24] MEDS ORDERED: ALUMINUM/MAG/SIMETHICONE 30 ML UDC ONE (16:43)
[2019-05-24] MEDS ORDERED: ALUMINUM/MAG/SIMETHICONE 30 ML UDC PO PRN (17:00)
[2019-05-24] MEDS ORDERED: OMNIPAQUE 350 MG/ML, 100ML BOTTLE ONE (17:18)
[2019-05-24 19:42] VITALS: BP 134/75
[2019-05-24 19:54] LABS: TROPONIN I < 0.015 ng/mL (0.000-0.045)
[2019-05-24] MEDS: ESCITALOPRAM 10MG TABLET PO SCH (20:57)
[2019-05-24] MEDS: SIMVASTATIN 40 MG TABLET PO SCH (20:57)
[2019-05-24] MEDS: ENOXAPARIN 40 MG/0.4 ML SQ SCH (21:03)
[2019-05-25 01:55] VITALS: BP 108/67
[2019-05-25] MEDS: CEFTRIAXONE PMX 1GM/50ML 50 ML IV SCH ×2 (05:13→17:39)
[2019-05-25] MEDS: METOPROLOL SUCCINATE 50 MG TAB.ER.24H PO SCH (05:17)
[2019-05-25] MEDS: LEVOTHYROXINE 50 MCG TABLET PO SCH (05:17)
[2019-05-25 05:33] LABS: BASOPHILS # (AUTO) 0.05 x10^3/uL (0-0.1); BASOPHILS % (AUTO) 1 % (0-1); EOSINOPHILS # (AUTO) 0.01 x10^3/uL (0-0.4); EOSINOPHILS % (AUTO) 0 % (1-7); LYMPHOCYTES # (AUTO) 1.08 x10^3/uL (1-3.4); LYMPHOCYTES % (AUTO) 14 % (22-44); MD NO; MEAN CORPUSCULAR HEMOGLOBIN 28.1 pg (27.0-34.8); MEAN CORPUSCULAR HGB CONC 33.2 g/dL (32.4-35.8); MEAN CORPUSCULAR VOLUME 84.5 fL (80-100); MEAN PLATELET VOLUME 7.4 fL (7.4-10.4); MONOCYTES # (AUTO) 0.69 x10^3/uL (0.2-0.8); MONOCYTES % (AUTO) 9 % (2-9); NEUTROPHILS # (AUTO) 6.09 x10^3/uL (1.8-6.8); NEUTROPHILS % (AUTO) 77 % (42-75); PLATELET COUNT 325 x10^3/uL (130-400); RED BLOOD COUNT 3.97 x10^6/uL (3.82-5.3)
[2019-05-25 05:41] LABS: ALANINE AMINOTRANSFERASE 10 U/L (12-78); ALBUMIN 1.8 g/dL (3.4-5.0); ANION GAP 7 mmol/L (5-15); CALCIUM 7.9 mg/dL (8.5-10.1); CHLORIDE 109 mmol/L (98-107); CREATININE 0.81 mg/dL (0.55-1.02)
[2019-05-25 05:45] LABS: ALKALINE PHOSPHATASE 105 U/L (45-117); BILIRUBIN,TOTAL 0.2 mg/dL (0.2-1.0); TOTAL PROTEIN 4.8 g/dL (6.4-8.2)
[2019-05-25 07:02] VITALS: BP 123/76
[2019-05-25] MEDS: DRONABINOL 2.5 MG CAPSULE PO SCH ×2 (10:06→20:31)
[2019-05-25] MEDS: DOXYCYCLINE 100MG TABLET PO SCH ×2 (10:06→20:31)
[2019-05-25] MEDS: PANTOPROZOLE 40MG TABLET PO SCH (10:06)
[2019-05-25] MEDS: ESCITALOPRAM 10MG TABLET PO SCH (10:06)
[2019-05-25] MEDS: BENZONATATE 100 MG CAPSULE PO PRN (10:11)
[2019-05-25] MEDS ORDERED: MAGNESIUM SULFATE PMX 2GM/50ML 50 ML IV ONE (12:00)
[2019-05-25] MEDS: NEUTRA PHOS K 250 MG TABLET PO SCH ×2 (12:50→20:31)
[2019-05-25 13:33] VITALS: BP 131/81
[2019-05-25 19:12] VITALS: BP 129/78
[2019-05-25] MEDS: SIMVASTATIN 40 MG TABLET PO SCH (20:31)
[2019-05-25] MEDS: GUAIFENESIN/COD200MG-20MG/10ML LIQUID PO PRN (20:31)
[2019-05-25] MEDS: ENOXAPARIN 40 MG/0.4 ML SQ SCH (20:32)
[2019-05-25] MEDS: ONDANSETRON 2MG/ML, 2ML IVPush PRN (21:31)
[2019-05-26 00:49] VITALS: BP 124/76
[2019-05-26] MEDS: METOPROLOL SUCCINATE 50 MG TAB.ER.24H PO SCH (05:44)
[2019-05-26] MEDS: LEVOTHYROXINE 50 MCG TABLET PO SCH (05:45)
[2019-05-26] MEDS ORDERED: CATHFLO-ALTEPLASE 2 MG/2 ML CATHFLUSH ONE (06:30)
[2019-05-26 06:56] LABS: ANION GAP 7 mmol/L (5-15); CALCIUM 7.9 mg/dL (8.5-10.1); CHLORIDE 109 mmol/L (98-107); CREATININE 0.72 mg/dL (0.55-1.02)
[2019-05-26 07:19] VITALS: BP 124/78
[2019-05-26] MEDS: ESCITALOPRAM 10MG TABLET PO SCH (09:01)
[2019-05-26] MEDS: NEUTRA PHOS K 250 MG TABLET PO SCH (09:01)
[2019-05-26] MEDS: PANTOPROZOLE 40MG TABLET PO SCH (09:01)
[2019-05-26] MEDS: DOXYCYCLINE 100MG TABLET PO SCH (09:01)
[2019-05-26] MEDS: DRONABINOL 2.5 MG CAPSULE PO SCH (09:01)
[2019-05-26] MEDS ORDERED: POTASSIUM CHLORIDE 20 MEQ TAB.ER.PRT PO ONE (11:00)
[2019-05-26] MEDS ORDERED: BENZ-17 PO (11:12)
[2019-05-26] MEDS ORDERED: Dronabinol PO (11:12)
[2019-05-26] MEDS ORDERED: DOCU100C33 PO (11:12)
[2019-05-26] MEDS ORDERED: POLY17PO5 PO (11:12)
[2019-05-26] MEDS ORDERED: LIDO700A20 TD (11:12)
[2019-05-26] MEDS ORDERED: ESCI10TA PO (11:12)
[2019-05-26 13:35] VITALS: BP 114/66
== END 2019-05-26 15:20 | DRG 193 ==
LOC: ED 13:13 → EDIP 14:47 → 4NW 16:49
PROVIDERS: ADMIT Internal Medicine; ATTEND Internal Medicine
PROC: 02HV33Z Insertion of Infusion Device into Superior Vena Cava, Percutaneous Approach (ICD-10-PCS; principal; 2019-05-17)
PROC: B548ZZA Ultrasonography of Superior Vena Cava, Guidance (ICD-10-PCS; 2019-05-17)
PROC: B5181ZA Fluoroscopy of Superior Vena Cava using Low Osmolar Contrast, Guidance (ICD-10-PCS; 2019-05-17)
DX: J18.8 Other pneumonia, unspecified organism (principal); E43 Unspecified severe protein-calorie malnutrition; J96.01 Acute respiratory failure with hypoxia; E87.2 Acidosis; D63.8 Anemia in other chronic diseases classified elsewhere; E16.2 Hypoglycemia, unspecified; Z68.26 Body mass index [BMI] 26.0-26.9, adult; E78.5 Hyperlipidemia, unspecified; E78.00 Pure hypercholesterolemia, unspecified; E83.52 Hypercalcemia; E83.42 Hypomagnesemia; E83.39 Other disorders of phosphorus metabolism; E89.0 Postprocedural hypothyroidism; I12.9 Hypertensive chronic kidney disease with stage 1 through stage 4 chronic kidney disease, or unspecified chronic kidney disease; I80.9 Phlebitis and thrombophlebitis of unspecified site; J45.909 Unspecified asthma, uncomplicated; M19.90 Unspecified osteoarthritis, unspecified site; M81.0 Age-related osteoporosis without current pathological fracture; N18.9 Chronic kidney disease, unspecified; Z96.649 Presence of unspecified artificial hip joint; N30.90 Cystitis, unspecified without hematuria; Z66 Do not resuscitate; Z80.1 Family history of malignant neoplasm of trachea, bronchus and lung; Z85.50 Personal history of malignant neoplasm of unspecified urinary tract organ; Z87.442 Personal history of urinary calculi; Z90.49 Acquired absence of other specified parts of digestive tract; Z88.6 Allergy status to analgesic agent; Z88.8 Allergy status to other drugs, medicaments and biological substances; D47.3 Essential (hemorrhagic) thrombocythemia
CPT/HCPCS: 36415; 36573; 70450; 71045; 71250; 71275; 74177; 78306; 80048; 80053; 81001; 82397; 83605; 83735; 83970; 84100; 84145; 84484; 85025; 87040; 87086; 87400; 93005; 96374; 99285; G0378; J0696; J1650; J1885; J2405; J2997; J3489; J7060; Q0167; Q9967; A9503; C1751; J1940; J2765; J3475; J7030; J7040